=== PATIENT | male | born 1990 | race Two or more races ===

== ENCOUNTER 2024-06-23 13:04 | Emergency (ER) | payer OTHER ==
[~2024-06-23] VITALS: Ht 170.2 cm; Wt 90.7 kg
--- NOTE | 2024-06-23 14:27 | DVH ---
CLINICAL INDICATION: BP TECHNIQUE: 2 radiographic views of the lumbar spine were obtained. Comparison: None FINDINGS/IMPRESSION: There is no evidence of acute fracture or dislocation. The visualized joint space is well maintained. The alignment is anatomical. There is no radiopaque foreign body.
[2024-06-23] MEDS ORDERED: METH-1181 PO (15:05)
[2024-06-23] MEDS ORDERED: LIDO5DIS21 TOP (15:05)
[2024-06-23] MEDS ORDERED: NAPR-746 PO (15:05)
--- NOTE | 2024-06-23 15:05 | ED.PDOC ---
Back pain HPI HPI Comments 34 year old male presents for back pain x 1 day No previous MHx Onset occurred at work while moving lifting a boxy from a conveyor belt [place] a POP to his right lower back Pain Rated mild Took IBU prior to checking in Denies history of chronic steroid use or history of osteoporosis Denies any history of cancer Denies fevers chills night sweats nausea vomiting unintentional weight loss Denies IV drug use history of HIV/TB Denies abdominal "tearing" pain Denies syncope Denies urinary incontinence or urinary changes Denies numbness tingling of the groin or inner thigh Denies previous back procedure or surgery Chief Complaint: Back Pain Time Seen by MD: 13:46 Reviewed Notes: Nurses Notes, Medications, Allergies Allergies: Coded Allergies: NO KNOWN ALLERGIES (Unverified , 06/23/24) Home Meds Active Scripts Lidocaine (LIDODERM 5% TOPICAL PATCH) 1 Patch Ph, 1 PATCH TOP DAILY for 30 Days, #30 PATCH 0 Refills Prov:ELIZ HAWTHORNE NP 06/23/24 Naproxen (Naproxen) 500 Mg Tab, 500 MG PO BIDPC for 14 Days, #28 TAB 0 Refills Prov:ELIZ HAWTHORNE NP 06/23/24 Methocarbamol (Methocarbamol) 500 Mg Tab, 500 MG PO Q8HPRN PRN for 30 Days, #90 TAB 0 Refills Prov:ELIZ HAWTHORNE NP 06/23/24 Information Source: Patient Mode of Arrival: Wheelchair Past Medical History PAST MEDICAL HISTORY: Denies Surgical History: Denies all surgeries Family History Family History: Reviewed,noncontributory to illness Social History Smoker: Non-Smoker Alcohol: Denies ETOH Use Drugs: Denies Drug Use All Other Systems: Reviewed and Negative (Per HPI) Physical Exam General Appearance: No Apparent Distress, Normal HEENT: Normal ENT Inspection, Pharynx Normal, TMs Normal Neck: Full Range of Motion, Non-Tender, Normal, Normal Inspection Respiratory: Chest Non-Tender, Lungs Clear, No Accessory Muscle Use, No Respiratory Distress, Normal Breath Sounds Cardiovascular: No Edema, No JVD, No Murmur, No Gallop, Normal Peripheral Pulses, Regular Rate/Rhythm Breast Exam: Deferred Gastrointestinal: No Organomegaly, Non Tender, No Pulsatile Mass, Normal Bowel Sounds, Soft Genitalia: Deferred Pelvic: Deferred Rectal: Deferred Extremities: No calf tenderness, Normal capillary refill, Normal inspection, Normal range of motion, Non-tender, No pedal edema Musculoskeletal : Extremity Location: Back (No gross abnormality on inspection. No midline tenderness. No bony step-offs on palpation. Localized unilateral right lumbar paraspinal tenderness to palpation. Full forward flexion extension and lateral movements. Distal neuro sensation intact) Apperance: Normal Neurologic: Alert, edi coordinator II-XII nml as Tested, No Motor Deficits, Normal Affect, Normal Mood, No Sensory Deficits Cerebellar Function: Normal Reflexes: Normal Skin: Dry, Normal Color, Warm Lymphatic: No Adenopathy Was a procedure done? Was a procedure done?: No Back Pain Differential Dx Differential Diagnosis: Musculoskeletal Pain X-Ray, Labs, Meds, VS Vital Signs Date Time Temp Pulse Resp B/P (MAP) Pulse Ox O2 Delivery O2 Flow Rate FiO2 06/23/24 15:23 66 16 98 Room Air 06/23/24 15:23 97.9 66 16 140/92 (108) 98 97.9 06/23/24 13:34 97.7 60 16 140/90 (107) 97 X-Ray, Labs, Meds, VS Comment History and physical exam consistent with muscular injury. No red flags Supportive care advised (rest, ice, heat, NSAIDs, stretching exercises) Massage muscles with cold pack or ice for 20 minutes 4 times per day. Usually most useful if there is swelling during the first 48 hours Heating pad on the most painful area for 20 minutes to relieve muscle spasm Sleep and the most comfortable sleeping position (usually on the side with knees bent) Light stretching, no strenuous activity, avoid frequent bending, avoid carrying heavy objects Discussed possible benefits of yoga and acupuncture On reevaluation, patient had symptomatic improvement. Patient is stable for discharge at this time. External notes reviewed. Test results and diagnostic imaging interpreted. All diagnostic findings, discharge care, education and instructions provided Follow-up with PCP in 2 to 3 days Patient verbalized understanding and agreed to treatment plan Vital signs stable, afebrile, no acute distress noted Patient ambulatory with strong steady gait Advised to return precautions for any new or worsening symptoms, return to ER immediately for re-evaluation Patient is aware that the purpose of this visit was for an acute medical emergency requiring emergent stabilization. Chronic conditions, including malignancies have not been ruled out. Patient is instructed to follow up with PCP as directed and discharge instructions for continued care and workup. If unable to arrange follow-up, patient is to return to the emergency department for reassessment. Patient (parent or legal guardian if applicable) was given verbal and written discharge instructions and acknowledges understanding. Time of 1ST Reevaluation: 15:00 Reevaluation 1ST: Improved Patient Education/Counseling: Diagnosis, Treatment Family Education/Counseling: Diagnosis, Treatment Departure 1 Departure Time of Disposition: 15:04 Impression: Primary Impression: Lumbar sprain Qualified Codes: S33.5XXA - Sprain of ligaments of lumbar spine, initial encounter Disposition: HOME / SELF CARE / HOMELESS Condition: Stable e-Prescriptions Lidocaine (LIDODERM 5% TOPICAL PATCH) 1 Patch Ph 1 PATCH TOP DAILY for 30 Days, #30 PATCH 0 Refills Prov: ELIZ HAWTHORNE NP 06/23/24 Naproxen (Naproxen) 500 Mg Tab 500 MG PO BIDPC for 14 Days, #28 TAB 0 Refills Prov: ELIZ HAWTHORNE NP 06/23/24 Methocarbamol (Methocarbamol) 500 Mg Tab 500 MG PO Q8HPRN PRN for 30 Days, #90 TAB 0 Refills Prov: ELIZ HAWTHORNE NP 06/23/24 Discharged With: Self Critical Care Note Critical Care Time?: No Stability Stability form required: No Heart Score Heart Score: Heart Score Response (Comments) Value History N/A 0 EKG N/A 0 Age N/A 0 Risk Factors N/A 0 Troponin N/A 0 Total 0 ELIZ HAWTHORNE NP Jun 23, 2024 15:05
[2024-06-23 15:23] VITALS: BP 140/92; PULSE 66; RESP 16; TEMP 97.9; O2SAT 98
== END 2024-06-23 16:01 | disposition home or self-care (01) ==
LOC: ER 13:04
DX: S33.5XXA Sprain of ligaments of lumbar spine, initial encounter (principal); Z79.899 Other long term (current) drug therapy; X50.0XXA Overexertion from strenuous movement or load, initial encounter; Y93.89 Activity, other specified; Y92.89 Other specified places as the place of occurrence of the external cause; Y99.0 Civilian activity done for income or pay
CPT/HCPCS: 72100

== ENCOUNTER 2024-07-20 04:53 | Emergency (ER) | payer SELFPAY ==
[~2024-07-20] VITALS: Ht 170.2 cm; Wt 85.6 kg
[~2024-07-20 04:53] MED LIST: LIDO5DIS21 TOP; METH-1181 PO; NAPR-746 PO
[2024-07-20 05:00] VITALS: BP 127/86; PULSE 62; RESP 16; O2SAT 100
[2024-07-20] MEDS ORDERED: METH4PAK PO (05:11)
[2024-07-20] MEDS ORDERED: TIZA4TAB9 PO (05:11)
--- NOTE | 2024-07-20 05:11 | ED.PDOC ---
Back pain HPI HPI Comments This is a 34-year-old male patient presents to ED chief complaint left-sided lower back pain. Patient reports injured himself while at work on 06/23/2024. 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 Describes pain as sharp achy left lower back 10/10 on pain scale nonradiating type pain. He was so reports numbness to his right foot plantar aspect. He was currently still at work on light duty. Was seen by occupational health he was still awaiting physical therapy in an lumbar spine MRI. He denies saddle anesthesia, loss of bowel or bladder control, weakness, or new injury. Chief Complaint: Back Pain Time Seen by MD: 05:08 Reviewed Notes: Nurses Notes, Medications, Allergies Allergies: Coded Allergies: NO KNOWN ALLERGIES (Unverified , 06/23/24) Home Meds Active Scripts Tizanidine Hydrochloride (Zanaflex) 4 Mg Tab, 1 TAB PO BID PRN for 7 Days, #14 TAB Prov:VERENA WOMACK 07/20/24 Methylprednisolone (Medrol Dosepak) 4 Mg Joni, 4 MG PO UD for 6 Days, #21 TAB UAD Prov:VERENA WOMACK 07/20/24 Lidocaine (LIDODERM 5% TOPICAL PATCH) 1 Patch Ph, 1 PATCH TOP DAILY for 30 Days, #30 PATCH 0 Refills Prov:ELIZ HAWTHORNE NP 06/23/24 Naproxen (Naproxen) 500 Mg Tab, 500 MG PO BIDPC for 14 Days, #28 TAB 0 Refills Prov:ELIZ HAWTHORNE NP 06/23/24 Methocarbamol (Methocarbamol) 500 Mg Tab, 500 MG PO Q8HPRN PRN for 30 Days, #90 TAB 0 Refills Prov:ELIZ HAWTHORNE NP 06/23/24 Past Medical History PAST MEDICAL HISTORY: Denies Surgical History: Denies all surgeries Family History Family History: Reviewed,noncontributory to illness Social History Smoker: Non-Smoker Alcohol: Denies ETOH Use Drugs: Denies Drug Use Constitutional: denies: chills, diaphoresis, fatigue, fever, malaise, sweats, weakness, others EENTM: denies: blurred vision, double vision, ear bleeding, ear discharge, ear drainage, ear pain, ear ringing, eye pain, eye redness, hearing loss, mouth pain, mouth swelling, nasal discharge, nose bleeding, nose congestion, nose pain, photophobia, tearing, throat pain, throat swelling, voice changes, others Respiratory: denies: cough, hemoptysis, orthopnea, SOB at rest, shortness of breath, SOB with excertion, stridor, wheezing, others Cardiovascular: denies: chest pain, dizzy spells, diaphoresis, Dyspnea on exertion, edema, irregular heart beat, left arm pain, lightheadedness, palpitations, PND, syncope, others Gastrointestinal: denies: abdomen distended, abdominal pain, blood streaked bowels, constipated, diarrhea, dysphagia, difficulty swallowing, hematemesis, melena, nausea, poor appetite, poor fluid intake, rectal bleeding, rectal pain, vomiting, others Genitourinary: denies: burning, dysuria, flank pain, frequency, hematuria, incontinence, penile discharge, penile sore, pain, testicle pain, testicle swelling, urgency, others Neurological: reports: numbness; denies: dizziness, fainting, headache, left sided numbness, left sided weakness, paresthesia, pre-existing deficit, right sided numbness, right sided weakness, seizure, speech problems, tingling, tremors, weakness, others Musculoskeletal: reports: back pain; denies: gout, joint pain, joint swelling, muscle pain, muscle stiffness, neck pain, others Integumetry: denies: bruises, change in color, change in hair/nails, dryness, laceration, lesions, lumps, rash, wounds, others Allergic/Immunocompromised: denies: Difficulty Healing, Frequent Infections, Hives, Itching, others Hematologic/Lymphatic: denies: anemia, blood clots, easy bleeding, easy bruising, swollen glands, others Endocrine: denies: excessive hunger, excessive sweating, excessive thirst, excessive urination, flushing, intolerance to cold, intolerance to heat, unexplained weight gain, unexplained weight loss, others Psychiatric: denies: anxiety, bipolar disorder, depression, hopeless, panic disorder, schizophrenia, sleepless, suicidal, others Physical Exam General Appearance: No Apparent Distress, Normal HEENT: Pharynx Normal Neck: Full Range of Motion, Non-Tender Respiratory: Lungs Clear, No Respiratory Distress, Normal Breath Sounds Cardiovascular: No Edema, No JVD, No Murmur, No Gallop, Normal Peripheral Pulses, Regular Rate/Rhythm Breast Exam: Deferred Gastrointestinal: No Organomegaly, Non Tender, No Pulsatile Mass, Normal Bowel Sounds, Soft Genitalia: Deferred Pelvic: Deferred Rectal: Deferred Extremities: Normal capillary refill, Normal inspection, Normal range of motion, Non-tender, No pedal edema Musculoskeletal : Location: Right Extremity Location: Back (L1 through L5 lumbar spine without tenderness, crepitus no step-offs. L3 through L5 right-sided paraspinal muscles noted spasms in monitored with tenderness on palpation. Negative straight leg raise bilateral. Strength sensory and motion intact bilateral positive pedal pulses) Apperance: Normal Neurologic: Alert, net software architect II-XII nml as Tested, No Motor Deficits, Normal Affect, Normal Mood, No Sensory Deficits Cerebellar Function: Normal Reflexes: Normal Skin: Dry, Normal Color, Warm Lymphatic: No Adenopathy Was a procedure done? Was a procedure done?: No Back Pain Differential Dx Differential Diagnosis: Musculoskeletal Pain X-Ray, Labs, Meds, VS Comment Patient had imaging done with occupational health he notes no acute findings in the lumbar x-ray. He reports no new injury since the event on 06 23 24. We will trial tizanidine and a Medrol Dosepak. Advised patient to follow up with occupational health for referral for an MRI and physical therapy. Advised patient to return to the ER for saddle anesthesia, weakness, loss of bowel or bladder control. Patient agrees with discharge plan of care. Time of 1ST Reevaluation: 05:17 Reevaluation 1ST: Unchanged Patient Education/Counseling: Diagnosis, Prognosis, Need For Follow Up Family Education/Counseling: No Family Present Departure 1 Departure Time of Disposition: 05:09 Impression: Primary Impression: Lumbar sprain Qualified Codes: S33.5XXA - Sprain of ligaments of lumbar spine, initial encounter Additional Impression: Musculoskeletal pain Disposition: HOME / SELF CARE / HOMELESS Condition: Stable e-Prescriptions Tizanidine Hydrochloride (Zanaflex) 4 Mg Tab 1 TAB PO BID PRN for 7 Days, #14 TAB Prov: VERENA WOMACK 07/20/24 Methylprednisolone (Medrol Dosepak) 4 Mg Joni 4 MG PO UD for 6 Days, #21 TAB UAD Prov: VERENA WOMACK 07/20/24 Discharged With: Self Critical Care Note Critical Care Time?: No Stability Stability form required: No VERENA WOMACK Jul 20, 2024 05:11
== END 2024-07-20 05:57 | disposition home or self-care (01) ==
LOC: ER 04:53
DX: S33.5XXA Sprain of ligaments of lumbar spine, initial encounter (principal); Z79.899 Other long term (current) drug therapy; X50.1XXA Overexertion from prolonged static or awkward postures, initial encounter; Y93.89 Activity, other specified; Y92.89 Other specified places as the place of occurrence of the external cause; Y99.8 Other external cause status